=== PATIENT | female | born 1970 | race Caucasian/White ===

== ENCOUNTER 2017-03-26 15:19 | Inpatient (IN) | payer MEDICAID ==
[~2017-03-26] VITALS: Ht 160 cm; Wt 74.8 kg
--- NOTE | ~2017-03-26 | HP ---
Unit #: [id number] #: [id number] Patient: YURIY BUCKLEY [id number] [place] [address] [id number] MR#: [id number] NAME: YURIY BUCKLEY ROOM: P176 Age: 47 Sex: F Admission Date: 03/26/2017 : 1970 Attending Physician: Cam Jj M.D. Admitting Physician: Cam Jj M.D. Primary Care Physician: Generic Doctor Not In System HISTORY AND PHYSICAL HISTORY OF PRESENT ILLNESS Yuriy is a 47-year-old female admitted to [facility] because of continued abuse of alcohol. She is detoxing. PAST MEDICAL HISTORY 1. Long history of alcohol abuse. 2. COPD. PAST SURGICAL HISTORY Nothing reported. ALLERGIES No known drug allergies. SOCIAL HISTORY She smokes 1 pack per day. Drinks alcohol frequently to excess and denies illicit drug use. FAMILY HISTORY Medically noncontributory. REVIEW OF SYSTEMS CONSTITUTIONAL: No fever or chills. HEENT: Denies any sore throat, ear pain or runny nose. CARDIOVASCULAR: Denies chest pain, irregular heart rhythm or palpitations. CHEST: Denies shortness of breath or cough. No hemoptysis. GASTROINTESTINAL: Denies nausea, vomiting, diarrhea or chronic constipation. ENDOCRINE: Denies history of increased thirst or urination. No recent significant weight loss or gain. GENITOURINARY: Denies dysuria, frequency, or hematuria. SKIN: Denies any rashes. HEMATOLOGIC: Denies history of increased bleeding or bruising. MUSCULOSKELETAL: Denies any hot, swollen joints. No generalized muscle pain. NEUROLOGIC: Denies problems with vision or speech. No frequent, severe headaches. No numbness, tingling or weakness in any extremities. Denies loss of bladder or bowel control. CURRENT MEDICATIONS 1. Detox protocol. 2. Effexor XR 37.5 mg daily. 3. Ibuprofen 800 mg b.i.d. Unit #: [id number] #: [id number] Patient: YURIY BUCKLEY 4. Proventil inhaler p.r.n. 5. Milk of Magnesia p.r.n. 6. Maalox p.r.n. 7. Tylenol p.r.n. PHYSICAL EXAMINATION GENERAL: Alert, obese, in no apparent distress. VITAL SIGNS: Blood pressure 116/88, heart rate 86, respirations 16, temperature 98.6. WEIGHT: 165. HEIGHT: 5 feet 3 inches. SKIN: Warm and dry without rash or lesion. HEENT: Normocephalic. TMs not viewed. Oral and nasal passages clear. Conjunctivae clear. PERRLA. EOMs intact. NECK: Supple without lymphadenopathy or thyromegaly. HEART: Regular rate and rhythm without murmur. LUNGS: Clear. ABDOMEN: Soft, nontender. : Not done. EXTREMITIES: No evidence of cyanosis, clubbing or edema. Moves all without focal deficit. NEUROLOGICAL: Grossly within normal limits. Cranial Nerves: II: Visual rosa are intact. III, IV AND : Extraocular movements are intact. Pupils are equal, round and reactive to light. V: Facial sensation is grossly normal. VII: Facial movements and expression are normal. VIII: Auditory acuity grossly intact. IX, X: Uvula is midline. Phonation is normal. XI: Patient shrugs shoulders and turns head normally. XII: Tongue protrudes in the midline. Sensory and Motor Function: Sensory and motor sensation is grossly normal. Motor: moves all extremities well. Coordination: Gait is normal. Deep Tendon Reflexes: Intact. IMPRESSION Psychiatric admission. RECOMMENDATIONS PSYCHIATRIC: Per psychiatrist. MEDICAL: See no contraindication to participate in facility's activities. MEDICAL PROGNOSIS Good. MEDICAL CONDITION Stable. Dictated by... Loly Nuñez P.A.-C. for Tiki Chaudhary/hang TD: 03/27/2017 17:48 JOB #: [id number] Unit #: [id number] #: [id number] Patient: YURIY BUCKLEY HISTORY AND PHYSICAL Page 1 of 1 X Loly Nuñez HISTORY AND PHYSICAL
--- NOTE | ~2017-03-26 | PN ---
Unit #: [id number] #: [id number] Patient: YURIY BUCKLEY [id number] [facility] [address] [place] [address] [id number] I MR#: [id number] NAME: YURIY BUCKLEY ROOM: [facility] Age: 47 Sex: F Admission Date: 03/26/2017 : 1970 Attending Physician: Cam Jj M.D. Admitting Physician: Cam Jj M.D. Primary Care Physician: Generic Doctor Not In System [facility] PROGRESS NOTES DATE 03/29/2017 DISCUSSION Yuriy continues to have [id number] detox symptomatology but her mood is better today. She is alert and fully oriented with no psychosis and no suicidal ideation. She expresses some concern and anxiety related to questions about her upcoming placement, and I reassured her that her social work program coordinator would address this with her as soon as they return after the long weekend. ASSESSMENT Alcohol dependence. PLAN Continue current treatment plan. Dictated by... Tiki Gloevr/myriam TD: 04/01/2017 03:59 JOB #: [id number] [facility] PROGRESS NOTES Page 1 of 1 X Cam Jj MD PROGRESS NOTE
--- NOTE | ~2017-03-26 | PN ---
Unit #: [id number] #: [id number] Patient: YURIY BUCKLEY [id number] [facility] [address] [place] [address] [id number] I MR#: [id number] NAME: YURIY BUCKLEY ROOM: [facility] Age: 47 Sex: F Admission Date: 03/26/2017 : 1970 Attending Physician: Cam Jj M.D. Admitting Physician: Cam Jj M.D. Primary Care Physician: Generic Doctor Not In System [facility] PROGRESS NOTES DATE 03/30/2017 DISCUSSION Yuriy continues to have some anxiety related to her placement but otherwise her symptoms have improved today. She asks about starting on Antabuse, and notes that it has been 5 days since her last drink. She has been on the Vivitrol injection before but found it unhelpful. We discussed the risks and benefits of treatment with Antabuse, and the patient was agreeable to a trial of this medication. ASSESSMENT Alcohol dependence withdrawal uncomplicated. PLAN Start Antabuse 250 mg at bedtime and anticipate discharge in the near future. Dictated by... Tiki Glover/myriam TD: 04/01/2017 04:00 JOB #: [id number] [facility] PROGRESS NOTES Page 1 of 1 X Cam Jj MD PROGRESS NOTE
--- NOTE | ~2017-03-26 | DS ---
Unit #: [id number] #: [id number] Patient: YURIY BUCKLEY [id number] [place] [address] [id number] MR#: [id number] NAME: YURIY BUCKLEY ROOM: [facility] Age: 47 Sex: F Admission Date: 03/26/2017 : 1970 Discharge Date: 03/31/2017 Attending Physician: Cam Jj M.D. Primary Care Physician: Generic Doctor Not In System DISCHARGE SUMMARY REASON FOR ADMISSION Yuriy is a 47-year-old woman with a history of alcohol dependence and major depression. She reported some difficulties with her treatment program at the [facility] and was unfortunately unable to obtain her desired placement at [facility] due to some insurance issues. She was admitted here for alcohol detox and further treatment planning. LABORATORY DATA Please see hospital chart. HOSPITAL COURSE Yuriy was admitted and return to treatment with Effexor XR 7.5 mg daily for depression, Remeron 7.5 mg at bedtime for insomnia and the alcohol detox protocol. She had a pleasant and affable affect throughout the hospitalization and participated appropriately in unit groups and activities, demonstrating good knowledge of the recovery process. She requested and started a trial of Antabuse after informed consent was provided and she tolerated this medication well. On the day of discharge she had achieved her desired placement at [facility] and was discharged stable condition. DISCHARGE DIAGNOSIS AXIS I: Alcohol dependence withdrawal uncomplicated F10.230. Major depression. AXIS II: No diagnosis. AXIS III: Alcohol withdrawal, resolved. INSTRUCTION TO PATIENT Follow up with [facility] and primary care physician. DISCHARGE MEDICATIONS Effexor XR 37.5 mg daily for depression, Remeron 7.5 mg at bedtime for insomnia, Antabuse 250 mg daily for alcohol cravings CONDITION ON DISCHARGE Improved. PROGNOSIS Fair to good. Unit #: [id number] #: [id number] Patient: YURIY BUCKLEY DIET AND ACTIVITY Per primary care doctor. Dictated by... Tiki GloverH/myriam TD: 04/01/2017 22:54 JOB #: [id number] DISCHARGE SUMMARY Page 1 of 1 X Cam Jj MD DISCHARGE SUMMARY
--- NOTE | ~2017-03-26 | PN ---
Unit #: [id number] #: [id number] Patient: MELANIA BUCKLEY [id number] [facility] [address] [place] [address] [id number] I MR#: [id number] NAME: MELANIA BUCKLEY ROOM: P176 Age: 47 Sex: F Admission Date: 03/26/2017 : 1970 Attending Physician: Cam Jj M.D. Admitting Physician: Cam Jj M.D. Primary Care Physician: Generic Doctor Not In System [facility] PROGRESS NOTES DATE 03/28/2017 DISCUSSION Upon today's assessment, Ms. Buckley states that she is doing okay but has complaints of increasing anxiety. She reports continued poor sleep and requests something to help her sleep. This evening she has been attending all groups and programming at this time. She currently denies suicidal/homicidal ideation and verbalizes no plan or intent. She denies auditory or visual hallucinations and no overt symptoms of psychosis was noted. PLAN Mirtazapine 7.5 mg p.o. p.r.n. q.h.s. was ordered for sleep. Patient has no known medical allergies and we will continue to monitor the patient q. 15 minute checks for safety as well as encourage her to attend dual diagnosis groups and programming. Dictated by... AVE Ferrera/hang TD: 03/31/2017 22:57 JOB #: [id number] [facility] PROGRESS NOTES Page 1 of 1 X OSMAR MUÑOZ PROGRESS NOTE
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
[2017-03-27 09:51] LABS: BASOPHIL# 0.1 X10e3 (0-0.3); BASOPHIL% 0.9 % (0-2.5); EOSINOPHIL# 0.3 X10e3 (0-0.7); EOSINOPHIL% 2.7 % (0.0-7.0); HEMATOCRIT 37.2 % (35.0-45.0); HEMOGLOBIN 12.7 gm/dL (12.0-16.0); LYMPHOCYTE# 2.3 X10e3 (1.0-3.5); LYMPHOCYTE% 21.4 % (17.0-45.0); MEAN CELL VOLUME 93.9 FL (83-96); MEAN CORPUSCULAR HEMOGLOBIN 31.9 PG (28-34); MEAN PLATELET VOLUME 7.3 FL (6.5-11.5); MONOCYTE# 0.7 X10e3 (0-1.0); MONOCYTE% 6.2 % (3.0-12.0); NEUTROPHIL# 7.2 X10e3 (1.5-7.1); NEUTROPHIL% 68.8 % (40-75); PLATELET COUNT 256 X10e3 (140-420); RED BLOOD COUNT 3.96 X10e (3.90-5.30); RED CELL DISTRIBUTION WIDTH 13.6 % (11.0-15.5); WHITE BLOOD COUNT 10.5 X10e3 (4.0-10.5)
[2017-03-27 10:02] LABS: DIFF IND NO
[2017-03-27 10:08] LABS: ALBUMIN SERUM 4.1 g/dL (3.5-5.0); CALCIUM SERUM 9.2 mg/dL (8.4-10.2); CREATININE SERUM 0.6 mg/dL (0.6-1.4); PROTEIN TOTAL SERUM 6.7 g/dL (6.0-8.3)
== END 2017-03-31 15:45 | DRG 897 ==
LOC: EDUNIT# → EDSEX 17:59 → P1E 17:59
PROVIDERS: Psychiatry & Neurology Psychiatry
PROC: HZ2ZZZZ Detoxification Services for Substance Abuse Treatment (ICD-10-PCS; principal; 2017-03-26)
DX: F10.230 Alcohol dependence with withdrawal, uncomplicated (principal); F32.9 Major depressive disorder, single episode, unspecified; J44.9 Chronic obstructive pulmonary disease, unspecified; F17.200 Nicotine dependence, unspecified, uncomplicated
CPT/HCPCS: 80053; 82947; 85025; J2550